=== PATIENT | female | born 1980 | race Caucasian/White ===

== ENCOUNTER → 2018-07-31 | Outpatient (CLI) | payer OTHER ==
[2018-07-31 16:33] LABS: BASO # 0.1 10*3/uL (0.0-0.1); BASO % 0.6 % (0.0-1.0); EOS # 0.3 10*3/uL (0.0-0.4); EOS % 2.4 % (1.0-4.0); HEMATOCRIT 41.4 % (37.0-47.0); HEMOGLOBIN 13.7 g/dl (12.0-16.0); LYMPH # 1.9 10*3/uL (1.3-4.4); LYMPH % 17.3 % (27.0-41.0); MEAN CELL VOLUME 93.5 fl (81.0-99.0); MEAN CORPUSCULAR HGB 30.9 pg (27.0-31.0); MEAN CORPUSCULAR HGB CONC 33.1 g/dl (33.0-37.0); MEAN PLATELET VOLUME 9.8 fl (9.6-12.3); MONO # 0.7 10*3/uL (0.1-1.0); MONO % 6.2 % (3.0-9.0); NEUT # 7.9 10*3/uL (2.3-7.9); NEUT % 73.2 % (47.0-73.0); PLATELET COUNT AUTOMATED 276 10*3/uL (130-400); RED BLOOD COUNT 4.43 10*6/uL (4.10-5.10); WHITE BLOOD COUNT 10.7 10*3/uL (4.8-10.8)
[2018-07-31 16:53] LABS: ALBUMIN 4.2 gm/dl (3.1-4.5); ALKALINE PHOSPHATASE 69 U/L (45-117); BUN 11 mg/dl (7-24); CHLORIDE 103 mmol/L (98-107); CREATININE 0.81 mg/dL (0.55-1.02); POTASSIUM 3.8 mmol/L (3.5-5.1); SGOT/AST 14 IU/L (3-35); SGPT/ALT 17 U/L (12-78); SODIUM 137 mmol/L (136-145); TOTAL PROTEIN 7.5 gm/dL (6.4-8.2)
== END | disposition home or self-care (01) ==
LOC: RESCLI 13:37
PROVIDERS: Internal Medicine
DX: Z12.31 Encounter for screening mammogram for malignant neoplasm of breast (principal); E03.9 Hypothyroidism, unspecified; E55.9 Vitamin D deficiency, unspecified; R00.0 Tachycardia, unspecified; Z76.89 Persons encountering health services in other specified circumstances; Z79.899 Other long term (current) drug therapy; Z88.8 Allergy status to other drugs, medicaments and biological substances

== ENCOUNTER → 2019-02-24 | Outpatient (CLI) | payer OTHER ==
[2019-02-24 17:28] LABS: FREE T4 1.04 ng/dl (0.76-1.46)
[2019-02-24 17:33] LABS: THYROID STIM HORMONE (HS) 2.45 uIU/ml (0.358-4.75)
== END | disposition home or self-care (01) ==
LOC: RESCLI 00:43 → LAB 00:43 → RESCLI 12:47
PROVIDERS: Internal Medicine Nephrology
DX: E03.9 Hypothyroidism, unspecified (principal); E55.9 Vitamin D deficiency, unspecified

== ENCOUNTER → 2019-05-11 | Outpatient (CLI) | payer OTHER | END | disposition home or self-care (01) | LOC: US 14:15 → MAMMO 16:00 | DX: Z12.31 Encounter for screening mammogram for malignant neoplasm of breast (principal); E03.9 Hypothyroidism, unspecified; F45.8 Other somatoform disorders ==

== ENCOUNTER → 2019-06-02 | Outpatient (CLI) | payer OTHER ==
[2019-06-02 17:22] LABS: FREE T4 1.09 ng/dl (0.76-1.46)
[2019-06-02 17:26] LABS: THYROID STIM HORMONE (HS) 2.12 uIU/ml (0.358-4.75)
[2019-06-02 17:29] LABS: VITAMIN D, 25-HYDROXY 33.6 ng/mL (30-100)
[2019-06-03 08:10] LABS: THYROID PEROXIDASE (TPO) AB 97 IU/mL (0-34)
[2019-06-03 14:07] LABS: THYROGLOBULIN ANTIBODY <1.0 IU/mL (0.0-0.9)
== END | disposition home or self-care (01) ==
LOC: LAB 16:04
PROVIDERS: Internal Medicine Endocrinology, Diabetes & Metabolism
DX: E03.9 Hypothyroidism, unspecified (principal); R53.82 Chronic fatigue, unspecified